=== PATIENT | female | born 1955 | race Caucasian/White ===

== ENCOUNTER 2016-10-01 10:48 | Observation (INO) | payer MEDICAID ==
[~2016-10-01] VITALS: Ht 158.8 cm; Wt 70.8 kg
--- NOTE | ~2016-10-01 | CATH ---
Cardiac Diagnostic + PCI Report Demographics Patient Name RAHEEM VIVAS Gender Female J Date of 1955 Age 61 year(s) Patient Number [id number] Date of Study 10/02/2016 Visit Number [id number] Room Number G6322 [place] [id number] Ht 157.48 cm Wt 70.76 kg Referring Nicholas Dickinson MD Primary Physician Physician Performing Jennifer Secondary Physician Physician Leslie ASHER Diagnostic [facility] Assisting Physician Physician Leslie ASHER Interventional [facility] Physician Commissions Manager Physician Leslie ASHER Findings and Conclusions Diagnostic Findings and Conclusion Unstable Angina/Angina Equivalent CAD Prox LAD 90% diffuse lesion Diagnostic Recommendations PCI of proximal LAD (Small vessel). Interventional Findings and Conclusion Successful PCI of the proximal LAD coronary artery using a Drug Eluting stent. Interventional Recommendations Patient will be observed overnight. Hydration and followup creatinine. Patient has been instructed to not lift anything more than 5 pounds for 1 week. Cardiac rehab and cardiac diet. I will plan on seeing the patient back in 2 week(s). Aggressive medical therapy for coronary artery disease. Patient will be discharged tomorrow. Aggressive risk factor management. Proton Pump Inhibitors. Hydration and follow up Creatinine. Dual Anti-platelet therapy. I would like to thank Dr. Peterson for the opportunity to participate in the care of Mrs Louis . Procedure Description The patient was brought to the diagnostic cardiac catheterization-EP laboratory in the fasting, non-sedated state. Informed consent was obtained in the written and verbal form after the risks and benefits were explained. The patient had no further questions and agreed to proceed. The planned puncture-incision site(s) were shaved and prepped with ChloraPrep and draped in the usual sterile manner. Conscious sedation, supplemental oxygen, and pain control medications were delivered by a registered nurse under physician guidance. Surface ECG rhythm, blood pressure measurement, and pulse oximetry were monitored throughout the procedure. ULNAR ACCESS obtained. Attempted radial, pulse was very thready and unable to get access so I attempted Ulnar, 2+ ulnar pulse. Arterial access. The access site was infiltrated with lidocaine. The vessel was entered with the Seldinger technique. A sheath was advanced into the vessel and used for catheter placement. Selective right coronary angiography. A catheter was advanced into the right coronary vessel ostium under fluoroscopic guidance. Contrast was injected by hand. Images were obtained in multiple projections. Selective left coronary angiography. A catheter was advanced into the left coronary vessel ostium under Fluoroscopic guidance. Contrast was injected by hand. Images were obtained in multiple projections. Angioplasty and Stent Placement: A guiding catheter was used to intubate the vessel. A 0.14 wire was then used to cross the lesion. A balloon catheter was placed across the lesion and inflated. The balloon catheter was then removed. A Drug Eluting Stent was placed and inflated. Post placement angiograms were performed. Arterial artery hemostasis was achieved. The patient was transferred to a regular nursing floor via cart accompanied by a nurse. The patient left the laboratory in stable condition. Diagnostic Cath Status: Elective Procedure Procedure Type Diagnostic procedure:Angiography:, Coronary Angios PCI procedure:Drug Eluting Coronary Stent:, LAD, PTCA:, LAD Indications: Abnormal stress perfusion study and Chest pain. The procedure was explained in detail to the patient. Risks, complications and alternative treatments were reviewed. Written consent was obtained. Medications Reviewed with Patient prior to Procedure. Angiographic Findings Dominance: Right Cardiac Arteries and Lesion Findings LMCA: Normal (0% Stenosis). LAD: Abnormal.The 1st Diag appears normal. Lesion on Prox LAD: Proximal subsection.90% stenosis 16 mm length reduced to 0%. Pre procedure GARRICK III flow was noted. Post Procedure GARRICK III flow was present. The guidewire cross was successful.The lesion was diagnosed as a low risk lesion.Culprit lesion. Devices used - Runthrough NS .014 x 180. Number of passes: 1. - Emerge Balloon 2.0 x 12. 1 inflation(s) to a max pressure of: 8 luanne. - Promus Premier 2.25 x 16 Stent. 2 inflation(s) to a max pressure of: 14 luanne. LCx: Abnormal.The 1st ob Ara appears abnormal. Lesion on Mid CX: 10% stenosis . Lesion on 1st Ob Ara% stenosis . RCA: Normal (0% Stenosis).The R PDA appears normal. The R PL appears normal. Coronary Tree Procedure Data Procedure Date Date: 10/02/2016Start: 01:21 PMEnd: 02:32 PM Entry Locations - Retrograde Percutaneous access was performed through the Right Ulnar Artery (Primary location). A 6 Fr sheath was inserted. Hemostasis was successfully obtained using Mechanical Compression. Closure Comments: R band with 12 cc air placed by Ashley Peñaloza RTSapphire. Procedure Medications Order and Administration + + + + + !Time !Medication !Dosage !Route ! + + + + + !10/02/2016 01:18 !Versed !1 mg !I.V. ! !PM ! ! ! ! + + + + + !10/02/2016 01:18 !Fentanyl !25 mcg !I.V. ! !PM ! ! ! ! + + + + + !10/02/2016 01:22 !Versed !1 mg !I.V. ! !PM ! ! ! ! + + + + + !10/02/2016 01:26 !Fentanyl !25 mcg !I.V. ! !PM ! ! ! ! + + + + + !10/02/2016 01:30 !Radial Verapamil !2.5 mg !I.A. ! !PM ! ! ! ! + + + + + !10/02/2016 01:31 !Fentanyl !25 mcg !I.V. ! !PM ! ! ! ! + + + + + !10/02/2016 01:32 !Heparin (ACC_3) !4000 units !I.V. bolus ! !PM ! ! ! ! + + + + + !10/02/2016 01:40 !Oxygen !2 l/min !NC ! !PM ! ! ! ! + + + + + !10/02/2016 01:42 !Angiomax (Bivalirudin) !52.5 mg !I.V. bolus ! !PM !(ACC_5) ! ! ! + + + + + 10/02/2016 01:42 !Angiomax (Bivalirudin) !1.75 mg/kg/hr!I.V. drip ! !PM !(ACC_5) ! ! ! + + + + 10/02/2016 01:49 !Fentanyl !25 mcg !I.V. ! !PM ! ! ! ! + + + + 10/02/2016 02:03 !Nitroglycerin !200 mcg !I.C. ! !PM ! ! ! ! + + + + 10/02/2016 02:06 !Plavix (ACC_8) !600 mg !P.O. ! !PM ! ! ! ! + + + + + Devices Used - A5 Fr. BS JR 4 Diag. Catheterwas used for:Right coronary angiography. - A5 Fr. BS JL 3.5 Diag. Catheterwas used for:Left coronary angiography. - A6 Fr. EBU 3.5 Guide Catheterwas used for:LAD Intervention. - A6 Fr. EBU 3 Guide Catheterwas used for:LAD Intervention. Contrast Material - Isovue [id number] ml Fluoroscopy Time: Diagnostic: 12:48 minutes. Total: 12:48 minutes. Fluoroscopy Dose: Diagnostic: 615 mGy. Total: 615 mGy. Estimated Blood Loss: 10 ml. Medical History Performed Procedures and Imaging Results - Stress testing with SPECT MPIwas performed on 10/02/2016. Results were: Positive. Risk/Extent of ischemia was: Intermediate risk. Allergies - Antibiotics:(erythromycin). Risk Factors The patient risk factors include:hypertension, family history of premature CAD appeared at age 40, chronic lung disease, last creatinine: 0.8 mg/dl, creatinine clearance: 80.41 ml/min, dyslipidemia and former tobacco use ( years not smokin). Admission Data Admission Date: 10/01/2016 Admission Time: 12:13 PM Admit Source: Emergency department Insurance Payors: Medicaid. Admission Medications + +------+------+ + + + + !Medication !Dosage!Times !Last !Last !Administered !Comments ! ! ! !Per !Delivery !Delivery ! ! ! ! ! !Day !Date !Time ! ! ! + +------+------+ + + + + !Beta ! ! ! ! !Yes ! ! !Dino ! ! ! ! ! ! ! !(any) ! ! ! ! ! ! ! + +------+------+ + + + + !Statin ! ! ! ! !Yes ! ! !(any) ! ! ! ! ! ! ! + +------+------+ + + + + Clinical Evaluation Leading to Procedure - The patient's CAD presentation was assessed as: Unstable angina. - The patient's anginal syndrome during the past two weeks was assessed as: Class IV according to the [place] Cardiovascular Society Classification System (CCS). Anti-anginal medications were prescribed during the past two weeks. The medications are: Beta Blockers and Other. - The patient has been in a state of heart failure within the past two weeks. - The patient's heart failure status was assessed as NYHA Class I. VA . Ejection Fraction - 10/01/2016 - Method: Echocardiography. EF%: 55. Hemodynamics Condition: Rest O2 Consumption: Estimated: 166.08Heart Rate: 77 bpm Pressures (mmHg) +-----+ + !Site !Pressure ! +-----+ + !AO !121/65 (86) ! +-----+ + !AO !115/69 (88) ! +-----+ + !AO !105/36 (63) ! +-----+ + Shunts Oxygen Values O2 Capacity 202.64 O2 Consumption 166.08 Signatures dtt: LESLIE KAT dtd: 10/02/16 1321 Physician Self Edit
--- NOTE | ~2016-10-01 | DS ---
PATIENT'S NAME: ORTEGA MACIEL [facility] AGE: 61 Y [address] ROOM: [place] [address] LOCATION: GPCU ADMIT DATE: 10/01/2016 Discharge Summary DISCHARGE DATE: 10/03/2016 FAMILY PHYSICIAN: Alexandra Peterson MD ATTENDING PHYSICIAN: Alexandra Peterson PRINCIPAL/DISCHARGE DIAGNOSES: 1. Acute coronary syndrome. 2. Coronary artery disease with 90% left anterior descending. 3. Hypertension. 4. Anxiety. 5. Hyperlipidemia. 6. Gastroesophageal reflux disease. 7. History of lung cancer. HOSPITAL COURSE: Summary: Ms. Cesar is a 61-year-old female, who presented with midsternal chest pain. I admitted her with acute coronary syndrome. See H and P. Her troponin was elevated at the office, but negative at the hospital. She had deep inverted T-waves in the precordial leads. Dr. Nelson was consulted. We ruled out acute [place] with serial enzymes. An echocardiogram showed normal LV function. She underwent a stress test which was positive and then a heart catheterization that same day which showed a 90% LAD blockage, which was stented with a drug-eluting stent. She did well other than some pain and bleeding at the ulnar artery site. Her hemoglobin is stable. Vitals are stable. She is feeling better, and ready to go home. We were initially going to have her get an EGD, but now that she has had the stent, we will hold off on that. DISPOSITION: Dismissal: Ms. Cesar is dismissed on 10/03/2016 in improved condition. DISCHARGE INSTRUCTIONS: 1. Diet: Her diet will be cardiac prudent. 2. Activity will be as tolerated. 3. She is to wear a wrist splint and a bandage on that right ulnar artery for the next 1 week. 4. She will follow up with Dr. Nelson in 2 weeks, and follow up with me in 1 week. DISCHARGE MEDICATIONS: 1. Aspirin 81 mg daily. 2. Clopidogrel 75 mg daily. 3. Pantoprazole 40 mg daily. 4. Atorvastatin 80 mg daily. PATIENT'S NAME: ORTEGA MACIEL [facility] AGE: 61 Y [address] ROOM: [place] [address] [facility] ADMIT DATE: 10/01/2016 Discharge Summary DISCHARGE DATE: 10/03/2016 FAMILY PHYSICIAN: Alexandra Peterson MD ATTENDING PHYSICIAN: Alexandra Peterson 5. Metoprolol 25 mg 1/2 tablet b.i.d. 6. Halbur 5/325, 1 tablet q.4 hours p.r.n. pain. 7. She will continue her home medications of Singulair 10 mg daily. 8. Benzonatate 200 mg t.i.d. p.r.n. 9. Lorazepam 1 mg q.6 hours p.r.n. anxiety. PROGNOSIS: Good. We will also plan to have her do outpatient cardiac rehabilitation. She quit smoking 2 years ago. So as long as she is complaint with medications and recommendations, her prognosis is excellent. MD ARVIND LEON/arinal /[id number] d: 10/03/16 1039 t: 10/08/16 2113, DISCHARGE SUMMARY
--- NOTE | ~2016-10-01 | ESTC ---
Cardiac Perfusion Imaging Demographics Patient Name RAHEEM King Gender Female Patient Number [id number] Race Visit Number [id number] [place] [id number] Room Number G6322 Accession Number [id number] Height 62 inches Date of 1955 Weight 156 pounds Interpreting Jennifer Nelson Date of study 10/02/2016 Physician Supervising /GABI AKINS Technologist Jorge Lee Ordering Physician Jennifer Nelson Stress Devora Long MD process maintenance technician RDCS, RVT Stress ECG Reading Isabelle Starr APRN Nurse Jerrica Torres RN Physician Procedure Admit Source:Emergency department. Procedure Type: Nuclear Stress Test:Cardiolite Stress Test Procedure Start time: 10/02/2016 08:44 Indications: Chest pain. Risk Factors The patient risk factors include:former tobacco use, hypertension, family history of premature CAD appeared at age 40, chronic lung disease, last creatinine: 0.8 mg/dl, dyslipidemia, creatinine clearance: 80.41 ml/min and ( years not smokin). Conclusions Summary Perfusion Images: The overall quality of the study is good. Left ventricular cavity is noted to be normal on the stress and normal on the rest images. There is no evidence of abnormal lung activity. The right ventricle is not visualized an cannot be assessed. Impression ECG portion of the lexiscan stress test is clinically nondiagnostic for ischemia by diagnostic criteria (due to underlying ST depression/TWI in anterolateral leads). Myocardial perfusion imaging is mildly abnormal. The images reveal a reversible defect in the distal anterior wall and apex consistent with ischemia in the territory of the left anterior descending artery . Overall left ventricular systolic function was normal. Calculated LVEF is 64% and TID ratio is 1.33. This is a intermediate risk stress test. There are no previous studies for comparison . Stress Protocols Resting ECG SInus rhythm with ST inversion in leads V2-V6 Pre-stress physical exam: Patient assessed by Ashkan LINDO prior to testing. Predicted HR: 157 bpm HR response: Appropriate BP response: Appropriate Reason for termination:Infusion complete ECG Findings Indeterminate ECG due to baseline abnormalities. Arrhythmias Rare PVC's Symptoms Shortness of breath. Complications Procedure complication: None. Stress Interpretation Appropriate hemodynamic response to Lexiscan. No significant worsening ST-T wave changes from baseline with Lexiscan. ECG portion is indeterminate for ischemia by diagnostic criteria due to baseline abnormalities. Will correlate with nuclear images. Imaging Results Applied corrections - Motion correction applied High risk findings Summed scores - LV dilatation (TID) : 1.33 - Summed stress score: 18 - Summed rest score: 15 - Summed difference score: 3 Stress ejection Ejection fraction:64 % EDV :73 ml ESV :26 ml Stroke volume :47 ml LV mass :122 gr Imaging Protocols Rest Stress Isotope:Tc99m Sestamibi IV Isotope: Tc99m Sestamibi IV Isotope dose:10 mCi Isotope dose:32 mCi Date:10/02/2016 06:40 Date:10/02/2016 08:47 Technique: SPECT Technique: Gated Supine SPECT Supine IV remains in place after procedure. Scan Time:45-60 minutes post Scan Time:45-60 minutes post injection injection Procedure Medications - Regadenoson (Lexiscan) 0.4 mg IV over 10-15 sec. I.V. 0.4 mg. Medical History Other Previous Procedures + + +-------+ !Test name !Date !Remarks! + + +-------+ !Stress testing with SPECT MPI !10/02/2016! ! + + +-------+ Admission Medications + +------+ + + +--------+ !Name !Dosage!Times per day !Start date !Stop date !Details ! + +------+ + + +--------+ !Beta Dino (any) ! ! ! ! ! ! + +------+ + + +--------+ !Statin (any) ! ! ! ! ! ! + +------+ + + +--------+ Admission Data Admission date: 10/01/2016 Admission Time: 12:13 Hospital Status: Inpatient. Signatures dtt: MINNIE KAT dtd: 10/02/16 0844 Physician Self Edit
--- NOTE | ~2016-10-01 | CON ---
PATIENT'S NAME: ORTEGA MACIEL [facility] AGE: 61 Y [address] ROOM: [place] [address] LOCATION: GPCU ADMIT DATE: 10/01/2016 Consultation DISCHARGE DATE: FAMILY PHYSICIAN: Alexandra Peterson MD ATTENDING PHYSICIAN: Alexandra Peterson DATE OF CONSULTATION: 10/01/2016 REFERRING PHYSICIAN: LESLIE KAT MD CARDIOLOGY CONSULTATION REASON FOR CARDIOLOGY CONSULTATION: Chest pain. HISTORY OF PRESENT ILLNESS: This is a 61-year-old female, admitted from [facility] Emergency Department with complaints of chest pain. She initially presented early this a.m. to Dr. Alexandra Peterson's office and then to the emergency department, instead of going home after the appointment due to continual and intensifying pain. She describes that the pain as epigastric, burning, and pressure and it also causes radiation to her throat with water brash. She only notes the symptoms after eating and usually is afraid to eat due to the symptoms returning. She does state that the burning in her esophageal area does also radiate to her shoulder blades at times and causes some complaints of nausea. She denies vomiting, dizziness, syncope, or palpitations. Of note, she is slightly anxious and answers her questions quite quickly while being evaluated, but overall has no complaints of pain at this time and is currently free from discomfort and resting. PAST MEDICAL HISTORY: 1. Hypertension. 2. Hypercholesterolemia. 3. Squamous cell carcinoma of the lung in 2014. 4. Recent bronchitis. 5. Anxiety. 6. Stress incontinence. 7. History of a lung collapse in 2014. PAST SURGICAL HISTORY: 1. Tonsillectomy. 2. Cholecystectomy. 3. Total hysterectomy. 4. Appendectomy. 5. Right knee scope. 6. Left foot surgery. PATIENT'S NAME: ORTEGA MACIEL [facility] AGE: 61 Y [address] ROOM: [place] [address] LOCATION: GPCU ADMIT DATE: 10/01/2016 Consultation DISCHARGE DATE: FAMILY PHYSICIAN: Alexandra Peterson MD ATTENDING PHYSICIAN: Alexandra Peterson 7. Partial lobectomy with specific removal of the left upper lobe for her squamous cell carcinoma. FAMILY HISTORY: The patient's mother had a history of congestive heart failure. She has two sisters with a history of breast cancer, and her father had a history of Kimber Gehrig disease. SOCIAL HISTORY: The patient is a former cigarette smoker. She smoked 50 years and during that time smoked 2 packs per day. She quit smoking in 2014. She denies alcohol or illicit drug use. CURRENT MEDICATIONS: 1. Heparin IV per ACS protocol. 2. Nitroglycerin as needed for chest pain IV. 3. Protonix 40 mg IV daily. 4. Lipitor 80 mg p.o. daily. 5. Lopressor 12.5 mg p.o. twice daily. MEDICATION ALLERGIES: Erythromycin base causing nausea and vomiting. REVIEW OF SYSTEMS: A 12-point review of systems evaluated and negative except for those listed in the HPI. LABORATORY DATA AND IMAGING STUDIES: Diagnostics: Current cardiac enzyme trend shows a CPK of 73, CK-MB of 1.5, and troponin I of less than 0.04. She did undergo a CT angiography for PE evaluation and she was negative for pulmonary embolus. PHYSICAL EXAMINATION: VITAL SIGNS: Temperature 97.8, pulse 61, respirations 20, blood pressure 151/79, and O2 saturation 97% on room air. The patient weighs 70.8 kg. SKIN: [place], warm, and dry. EYES: Sclerae clear. No xanthelasmas. ENT: Oral mucosa is pink and moist. No jugular venous distention. No carotid bruits. CHEST: Respirations are even and unlabored. Lung sounds are clear in bilateral upper lobes. She does have noted left basilar crackles as well as a nonproductive cough. HEART: Regular rate and rhythm. Normal S1 and S2. Does have the presence of a 1/6 systolic murmur. ABDOMEN: Soft and nontender. PATIENT'S NAME: ORTEGA MACIEL [facility] AGE: 61 Y [address] ROOM: [place] [address] LOCATION: GPCU ADMIT DATE: 10/01/2016 Consultation DISCHARGE DATE: FAMILY PHYSICIAN: Alexandra Peterson MD ATTENDING PHYSICIAN: Alexandra Peterson MUSCULOSKELETAL: Gait is normal. EXTREMITIES: Peripheral pulses palpable. No clubbing, cyanosis, or edema. PSYCHIATRIC: Alert and oriented. Mood and affect are appropriate. She is slightly anxious and does answer her questions quite quickly when questioned. IMPRESSION AND PLAN: Per Dr. Leslie Kat: 1. Atypical chest pain. 2. Hypertension. 3. Gastroesophageal reflux disease. 4. History of squamous cell carcinoma of the lung with a partial left pneumonectomy. 5. Recent bronchitis infection. We will check an echocardiogram to fully evaluate her ejection fraction as well as look for wall motion or valvular abnormalities. We will continue to trend her cardiac enzymes as well. If her enzymes continue to remain negative, we will continue with a Lexiscan stress test in the a.m. to fully evaluate a myocardial perfusion imaging. Once again, this is a 61-year-old female who has classic acid reflux symptoms including the water brash and chest burning in the esophageal area which is very typical for gastroesophageal reflux disease, but could be atypical coronary artery disease and acute coronary syndrome. Very concerning are the new T-wave inversions in her anterior and anterolateral leads. Once again, we will watch her echocardiogram and serial enzymes, and plan to proceed with a stress test in the a.m. to fully evaluate. Thank you Dr. Alexandra Peterson for this consult. Thank you for allowing [facility] to interact in the care of this patient. YANI HARRINGTON APRN FOR MD CHARLOTTE CONWAY/jazmine /[id number] d: 10/02/16 0011 t: 10/15/16 1610, CONSULTATION REPORT
--- NOTE | ~2016-10-01 | ECHO ---
Transthoracic Echocardiography Report (TTE) Demographics Patient Name ORTEGA MACIEL Date of Study 10/01/2016 J Patient Number [id number] Visit Number [id number] Date of 1955 Room Number G6322 Gender Female Number Age 61 year(s) Referring Nicholas Dickinson MD Dip Filler Devora Long [facility], Physician Jennifer Nelson RVT Physician Interpreting Jennifer Nelson Paper Pattern Inspector Physician Supervising Ordering Jennifer Nelson MD/MLP Physician MD Nurse Stress Share Dairy Farmer Conclusions Contractility Score Summary Normal Left Ventricular contractility was noted. Summary Normal LV/RV size and systolic function. The estimated left ventricular ejection fraction is 55%. Diastolic assessment reveals Grade I diastolic dysfunction. No significant valvular abnormalities. No evidence of pericardial effusion. Procedure Type of Study TTE procedure:2D Echocardiogram. Procedure Date Date: 10/01/2016 Start: 02:35 PM Study Location: Inpatient Portable Technical Quality: Adequate visualization Indications:Chest pain. Appropriate Use Criteria: 9 Patient Status: STAT HR: 67 bpm BP: 143/67 mmHg M-Mode/2D Measurements LV Diastolic Dimension: 3.89 cm LV Systolic Dimension: 3.21 cm LV Septum Diastolic: 0.74 cm LV PW Diastolic: 0.94 cm AO Root Dimension: 2.8 cm Cardiac Output: 4.99 l/min AV Cusp Separation: 2 cm RV Diastolic Dimension: 2.87 cm LA volume: 39 ml LVOT: 1.8 cm RV Base: 2.8 cm LVOT VTI: 29.3 cm RV Mid: 2.26 cm LV Stroke volume: 74.52 ml TAPSE: 2.02 cm TDI-S': 12 cm/s Doppler Measurements AV Peak Velocity: 1.41 m/s MV Peak E-Wave: 0.81 m/s AV Peak Gradient: 7.95 mmHg MV Peak A-Wave: 0.94 m/s AV Mean Gradient: 4 mmHg MV E/A Ratio: 0.86 LVOT Peak Velocity: 1.48 m/s MV P1/2t: 65 msec TR Gradient:28.3 mmHg PV Peak Velocity: 1.1 m/s Estimated RAP:5 mmHg PV Peak Gradient: 4.84 mmHg Estimated RVSP: 33 mmHg Estimated PASP: 33.3 mmHg E' Septal Velocity: 0.06 m/s A' Septal Velocity: 0.09 m/s E' Lateral Velocity: 0.07 m/s A' Lateral Velocity: 0.05 m/s Findings Left Ventricle Diastolic assessment reveals Grade I diastolic dysfunction. Right Ventricle Normal right ventricle structure and function. Left Atrium Normal left atrial size. Right Atrium Normal right atrial size. IVC imaging is consistent with normal RA pressures. Mitral Valve Mild mitral regurgitation by color Doppler. Aortic Valve Normal aortic valve structure and function. Tricuspid Valve Mild tricuspid regurgitation by color Doppler. Pulmonic Valve Normal pulmonic valve structure and function. Pericardial Effusion No evidence of pericardial effusion. Miscellaneous Visualized portions of the aortic root and ascending aorta appear normal in size. Pleural Effusion No evidence of pleural effusion. Contractility Score LV regional wall motion:(0-Non visualized 1-Normal 2-Hypokinesis 3-Akinesis 4-Dyskinesis 5-Aneurysm) Signature dtt: MINNIE KAT dtd: 10/01/16 1435 Physician Self Edit
--- NOTE | ~2016-10-01 | ER ---
PATIENT'S NAME: ORTEGA MACIEL [facility] AGE: 61 Y [address] ROOM: [place] [address] LOCATION: GPCU ADMIT DATE: 10/01/2016 ER/Outpatient Report DISCHARGE DATE: FAMILY PHYSICIAN: Alexandra Peterson MD ATTENDING PHYSICIAN: Alexandra Petreson TIME OF ARRIVAL: 10:48 hours. TIME SEEN: 10:48 hours. IDENTIFICATION: A 61-year-old female. CHIEF COMPLAINT: Chest pain. HISTORY OF PRESENT ILLNESS: The patient is a 61-year-old female who has had chest pain for the last 1 month off and on. She describes it as an epigastric discomfort up and down her chest associated with nausea. The pain radiates to her back. No other associated shortness of breath, diaphoresis, lightheadedness, or dizziness. The patient was seen in the clinic this morning by Dr. Peterson and actually was scheduled to be a direct admit and she went home to get her things she developed chest pain so came here. On arrival here now, her pain is relieved. While I was talking to her, she did develop chest pain briefly, it self- resolved, and she has had no further chest pain. ALLERGIES: ERYTHROMYCIN AND BACTRIM. CURRENT MEDICATIONS: 1. Singulair. 2. Lorazepam. 3. Prilosec. MEDICAL PROBLEMS: Lung cancer, status post left upper lobe lobectomy 2 years ago, treated with radiation therapy, allergic rhinitis. The patient denies any other significant medical problems. When I did get records from [facility], other medical problems include anxiety, hyperlipidemia, hypertension, and squamous cell carcinoma of the lung, SOCIAL HISTORY: PATIENT'S NAME: ORTEGA MACIEL [facility] AGE: 61 Y [address] ROOM: [place] [address] LOCATION: GPCU ADMIT DATE: 10/01/2016 ER/Outpatient Report DISCHARGE DATE: FAMILY PHYSICIAN: Alexandra Peterson MD ATTENDING PHYSICIAN: Alexandra Peterson The patient lives in [place]. She is disabled. She quit smoking 2 years ago. Alcohol and drug use, she reported to me "this has nothing to do with any of that." FAMILY HISTORY: Father and mother with alcoholism, mother with unknown cancer, sisters with breast cancer, maternal uncles x2 cardiovascular disease "later in life," hyperlipidemia in sister, hypertension in sister, and father with ALS. PRIOR SURGERIES: She said she has had several prior surgeries, she would not elaborate, and she said "it is in my record." Records reflect hysterectomy, cholecystectomy, tonsillectomy, cataract surgery, appendectomy, knee surgery, pneumonectomy, and vaginal delivery. REVIEW OF SYSTEMS: All systems reviewed and negative other than what is noted in the HPI. The patient wonders why I am asking her all these questions stating she "I already have a doctor." I explained to her that with the chest pain she is now in the emergency room and we will take care of her until she can get to the floor when Dr. Peterson can take care of her. I also spoke with Dr. Peterson and she said she had an elevated troponin and an elevated D-dimer in the clinic with some T- wave inversion in the precordial leads. The patient again currently not having any pain. PHYSICAL EXAMINATION: VITAL SIGNS: Weight 71 kg. Blood pressure 170/82, pulse 68, respirations 20, temperature 97.1, and sats 97%. GENERAL: A 61-year-old female in no acute distress. HEENT: Normocephalic, atraumatic. Eyes: Pupils equal and reactive to light and accommodation. Extraocular movements intact. Nose: Mucosa pink. No lesions. Mouth: No lesions. Pharynx benign. NECK: Supple. No lymphadenopathy. No nuchal rigidity. LUNGS: Clear to auscultation. Breath sounds are equal. No rhonchi, wheezes, or rales. HEART: Regular rate and rhythm. No murmur, rub, or gallop. ABDOMEN: Bowel sounds present. Soft, nondistended. No hepatosplenomegaly. No palpable masses. Nontender. SKIN: [place], warm, and dry. No lesions or rashes noted. NEURO: The patient is alert and oriented x4. Cranial nerves 2 through 12 grossly intact. Motor strength 5/5 throughout. Sensation is intact to light touch. Motor strength 5/5 throughout. EXTREMITIES: No edema. No calf tenderness. LABORATORY DATA: PATIENT'S NAME: ORTEGA MACIEL [facility] AGE: 61 Y [address]: [address] [id number] LOCATION: [facility] ADMIT DATE: 10/01/2016 ER/Outpatient Report DISCHARGE DATE: FAMILY PHYSICIAN: Alexandra Peterson MD ATTENDING PHYSICIAN: Alexandra Peterson Records were reviewed that were faxed from [facility] including an EKG, which showed normal sinus rhythm, but T-wave inversion noted in the precordial leads. EKG here normal sinus rhythm at 71 beats per minute. No acute ST- elevation or depression. She does have significant T-wave inversion in leads V1 to V6 as well as lead I. Hemoglobin from the clinic 14.9, hematocrit 43.2, platelets 168, and white count 4.6. INR is 1.0. Cardiac enzymes from the clinic CPK is 47, troponin elevated at 0.022, normal range there is 0-0.013. CK-MB 1.6. D-dimer elevated at 339.6, normal less than 230. H. pylori screen is positive. Sodium 139, potassium 4.4, chloride 106, CO2 24, BUN 14, creatinine 0.8, and blood sugar 94. Repeat cardiac enzymes here CPK 73, CK-MB 1.5, and troponin I less than 0.040. CT scan, PE protocol, no findings of PE, status post upper lobectomy, pleural-based lesion of the left-base, probably benign loculation of fluid, attention to this area and follow up is advised. IMPRESSION AND PLAN: 1. Chest pain. The patient has had no further episodes of chest pain here. Dr. Peterson has already faxed over orders, we did initiate heparin per acute coronary syndrome protocol, the patient has no current contraindication and will be admitted to PCU telemetry per Dr. Peterson. 2. Pleural based lesion at the left base, probably benign loculation of fluid per Radiology, attention to this area and follow up is advised. 3. History of squamous cell carcinoma of the lung, left-side. 4. Anxiety. YENY SOTO MD CAR/modl /[id number] d: 10/02/16 0156 t: 10/02/16 1512, OUTPATIENT REPORT
[~2016-10-01 10:48] MED LIST: COMBIVENT RESPIM4 GM INH; NICODERM/HABITR21 MG TRANS; PERCOCET 5-3251 EACH PO; PROTONIX40 MG PO; TYLENOL EXTRA500 MG PO; ZOLPIDEM TARTRAT5 MG PO
[2016-10-01 11:36] LABS: CPK 73 IU/L (21-215)
[2016-10-01 11:38] LABS: PROTIME 10.2 SECONDS (9.6-11.1)
[2016-10-01] MEDS ORDERED: ADVIL200 MG (14:31)
[2016-10-01] MEDS ORDERED: SINGULAIR10 MG PO (14:32)
[2016-10-01] MEDS ORDERED: ATIVAN 1 MG1 MG PO (14:32)
[2016-10-01] MEDS ORDERED: TUMS REGULAR ST1 TAB PO (14:34)
[2016-10-01] MEDS ORDERED: BENZONATATE200 MG PO (14:34)
[2016-10-01] MEDS ORDERED: PRILOSEC10 MG (14:35)
[2016-10-01 14:50] LABS: BLOOD UREA NITROGEN 15 mg/dL (6-24); CALCIUM 9.9 mg/dL (8.5-10.5); CHLORIDE 108 mMol/L (96-110); CO2 22 mMol/L (22-32); CREATININE 0.8 mg/dL (0.5-1.1); ESTIMATED GFR (MDRD EQUATION) > 60; MAGNESIUM 2.1 mg/dL (1.3-2.6); SODIUM 142 mMol/L (135-145)
[2016-10-01 17:34] LABS: CPK 89 IU/L (21-215)
[2016-10-01 23:36] LABS: CPK 66 IU/L (21-215)
[2016-10-02 05:16] LABS: CPK 65 IU/L (21-215)
[2016-10-03 05:26] LABS: ALBUMIN 3.1 gm/dL (3.5-5.0); ALK PHOS 68 IU/L (33-138); ALT 16 IU/L (12-78); ANION GAP 12.9 (10.0-19.0); AST 18 IU/L (10-40); BLOOD UREA NITROGEN 11 mg/dL (6-24); CALCIUM 8.7 mg/dL (8.5-10.5); CHLORIDE 112 mMol/L (96-110); CO2 22 mMol/L (22-32); CREATININE 0.6 mg/dL (0.5-1.1); ESTIMATED GFR (MDRD EQUATION) > 60; POTASSIUM 3.9 mMol/L (3.7-5.1); SODIUM 143 mMol/L (135-145); TOTAL BILIRUBIN 0.6 mg/dL (0.0-1.5); TOTAL PROTEIN 6.3 g/dL (6.0-8.4)
[2016-10-03] MEDS ORDERED: ASPIRIN (CHILDR81 MG (08:40)
[2016-10-03] MEDS ORDERED: ASPIRIN (CHILDR81 MG PO (08:41)
[2016-10-03] MEDS ORDERED: LIPITOR80 MG PO (08:43)
[2016-10-03] MEDS ORDERED: PLAVIX75 MG PO (08:44)
[2016-10-03] MEDS ORDERED: PROTONIX40 MG PO (08:53)
[2016-10-03] MEDS ORDERED: NORCO 5-325 TA1 EACH PO (08:58)
[2016-10-03] MEDS ORDERED: METOPROLOL TART25 MG PO (09:05)
== END 2016-10-03 09:50 | disposition disaster alternative care site (69) ==
LOC: GPCU 10:48 → GMED 10:48 → EDSTATUS 11:00 → GPCU 12:13
PROVIDERS: Family Medicine; Internal Medicine Interventional Cardiology; ADMIT Family Medicine
DX: I24.9 Acute ischemic heart disease, unspecified (principal); I25.10 Atherosclerotic heart disease of native coronary artery without angina pectoris; I10 Essential (primary) hypertension; F41.9 Anxiety disorder, unspecified; E78.5 Hyperlipidemia, unspecified; J40 Bronchitis, not specified as acute or chronic; K21.9 Gastro-esophageal reflux disease without esophagitis; N39.3 Stress incontinence (female) (male); Z79.01 Long term (current) use of anticoagulants; Z85.118 Personal history of other malignant neoplasm of bronchus and lung; Z79.82 Long term (current) use of aspirin; Z79.899 Other long term (current) drug therapy; Z87.891 Personal history of nicotine dependence; Z90.49 Acquired absence of other specified parts of digestive tract; Z90.710 Acquired absence of both cervix and uterus; Z90.89 Acquired absence of other organs; Z98.890 Other specified postprocedural states; Z88.1 Allergy status to other antibiotic agents
CPT/HCPCS: A9500; C1725; C1769; C1874; C1887; C1894; C9113; C9600; G0378; J0583; J1644; J2250; J2785; J3010; J7030; J7060; Q9967

== ENCOUNTER → 2016-10-10 | Outpatient (CLI) | payer MEDICAID ==
[~2016-10-10] MED LIST changes: +ADVIL200 MG; +ASPIRIN (CHILDR81 MG; +ASPIRIN (CHILDR81 MG PO; +ATIVAN 1 MG1 MG PO; +BENZONATATE200 MG PO; +LIPITOR80 MG PO; +METOPROLOL TART25 MG PO; +NORCO 5-325 TA1 EACH PO; +PLAVIX75 MG PO; +PRILOSEC10 MG; +SINGULAIR10 MG PO; +TUMS REGULAR ST1 TAB PO
[2016-10-10 09:21] LABS: ALBUMIN 3.7 gm/dL (3.5-5.0); ALK PHOS 93 IU/L (33-138); ALT 19 IU/L (12-78); BLOOD UREA NITROGEN 20 mg/dL (6-24); CALCIUM 9.6 mg/dL (8.5-10.5); CHLORIDE 110 mMol/L (96-110); CO2 27 mMol/L (22-32); CREATININE 0.8 mg/dL (0.5-1.1); ESTIMATED GFR (MDRD EQUATION) > 60; SODIUM 143 mMol/L (135-145); TOTAL BILIRUBIN 0.5 mg/dL (0.0-1.5); TOTAL PROTEIN 7.2 g/dL (6.0-8.4)
[2016-10-10 09:23] LABS: ANION GAP 10.3 (10.0-19.0); AST 23 IU/L (10-40)
[2016-10-10 09:24] LABS: POTASSIUM 4.3 mMol/L (3.7-5.1)
== END | disposition disaster alternative care site (69) ==
LOC: LNHI 08:55
PROVIDERS: Internal Medicine Interventional Cardiology
DX: I10 Essential (primary) hypertension (principal)

== ENCOUNTER → 2016-12-25 | Outpatient (CLI) | payer MEDICAID ==
[2016-12-25 08:29] LABS: ALBUMIN 3.7 gm/dL (3.5-5.0); ANION GAP 10.4 (10.0-19.0); BLOOD UREA NITROGEN 13 mg/dL (6-24); CALCIUM 9.4 mg/dL (8.5-10.5); CHLORIDE 111 mMol/L (96-110); CO2 28 mMol/L (22-32); CREATININE 0.8 mg/dL (0.5-1.1); ESTIMATED GFR (MDRD EQUATION) > 60; PHOSPHORUS 2.7 mg/dL (2.5-4.9); POTASSIUM 4.4 mMol/L (3.7-5.1); SODIUM 145 mMol/L (135-145)
== END | disposition disaster alternative care site (69) ==
LOC: GRAD 07:37 → GLAB 08:00
PROVIDERS: Internal Medicine Hematology & Oncology
DX: C34.02 Malignant neoplasm of left main bronchus (principal); J20.0 Acute bronchitis due to Mycoplasma pneumoniae; J84.10 Pulmonary fibrosis, unspecified; I70.90 Unspecified atherosclerosis; Z90.2 Acquired absence of lung [part of]